=== PATIENT | female | born 1985 ===

== ENCOUNTER 2018-10-21 19:26 | Emergency (ER) | payer SELFPAY ==
[2018-10-21 19:33] VITALS: BMI 21.6
--- NOTE | 2018-10-21 19:36 | ED PDOC ---
Arrival/HPI - General Historian: Patient, EMS - History of Present Illness Narrative History of Present Illness (Text): 10/21/18 19:33 32 y/o female, psychiatric history including depression, nkda, biba for psychiatric evaluation. Pt. stated that she has been depressed becausae the boyfriend cheated on her, not been eating or drinking well, found out by family and concerning about her so she was send to the ER for evaluation. Pt. stated that she is sad about boyfriend cheating on her and chronically depressed but not any worsened, no auditory or visual hallucination, no homocidal or suicidal ideation, no other medical or psychological complaints. Past Medical History - Provider Review Nursing Documentation Reviewed: Yes - Past History Past History: No Previous - Infectious Disease Hx of Infectious Diseases: None - Tetanus Immunization Tetanus Immunization: Unknown - Past Medical History Past Medical History: No Previous - Cardiac Hx Cardiac Disorders: No Hx Hypertension: No - Pulmonary Hx Respiratory Disorders: No Hx Tuberculosis: No - Neurological HX Cerebrovascular Accident: No Hx Seizures: No - HEENT Hx HEENT Disorder: No - Renal Hx Renal Disorder: No - Endocrine/Metabolic Hx Endocrine Disorders: No - Hematological/Oncological Hx Blood Disorders: No Hx Cancer: No - Integumentary Hx Dermatological Disorder: No - Musculoskeletal/Rheumatological Hx Musculoskeletal Disorders: No Hx Falls: No - Gastrointestinal Hx Gastrointestinal Disorders: No - Genitourinary/Gynecological Hx Genitourinary Disorders: No Hx Sexually Transmitted Diseases: No - Psychiatric Hx Sexual Abuse: No Hx Substance Use: Yes (HEROIN) - Past Surgical History Past Surgical History: No Previous - Surgical History Hx Orthopedic Surgery: Yes (right leg surgery) Other/Comment: bone graft - Anesthesia Hx Anesthesia: Yes Hx Anesthesia Reactions: No Hx Malignant Hyperthermia: No - Suicidal Assessment Feels Threatened In Home Enviroment: No Family/Social History - Physician Review Nursing Documentation Reviewed: Yes Family/Social History: Unknown Family HX Smoking Status: Heavy Smoker > 10 Cigarettes Daily Hx Alcohol Use: No Hx Substance Use: Yes (HEROIN) Substance used: heroin and xanax Hx Substance Use Treatment: No Allergies/Home Meds Allergies/Adverse Reactions: Allergies No Known Allergies Allergy (Verified 10/21/18 19:40) Home Medications: Home Meds Medication Instructions Recorded Confirmed Gabapentin [Neurontin] 600 mg PO BID 10/28/16 01/10/17 Metoprolol Succinate XL [Toprol XL] 50 mg PO DAILY 10/28/16 01/10/17 Escitalopram [Lexapro] 20 mg PO DAILY 01/10/17 01/10/17 busPIRone [Buspar] 30 mg PO TID 01/10/17 01/10/17 Review of Systems - Review of Systems Constitutional: absent: Fatigue, Fevers Eyes: absent: Vision Changes ENT: absent: Hearing Changes Respiratory: absent: SOB, Cough Cardiovascular: absent: Chest Pain Gastrointestinal: absent: Abdominal Pain, Diarrhea, Nausea, Vomiting Skin: absent: Rash, Pruritis Neurological: absent: Headache, Dizziness Psychiatric: Depression. absent: Anxiety, Suicidal Ideation Physical Exam - Systems Exam Head: Present: Atraumatic, Normocephalic Pupils: Present: PERRL Extroacular Muscles: Present: EOMI Conjunctiva: Present: Normal Mouth: Present: Moist Mucous Membranes Neck: Present: Normal Range of Motion Respiratory/Chest: Present: Clear to Auscultation, Good Air Exchange. No: Respiratory Distress, Accessory Muscle Use Cardiovascular: Present: Regular Rate and Rhythm, Normal S1, S2. No: Murmurs Abdomen: No: Tenderness, Distention, Peritoneal Signs, Rebound, Guarding Back: Present: Normal Inspection Upper Extremity: Present: Normal Inspection, Normal ROM, NORMAL PULSES, Neurovascularly Intact. No: Cyanosis, Edema, Deformity Lower Extremity: Present: Normal Inspection, NORMAL PULSES, Normal ROM, Neurovascularly Intact. No: Edema, Deformity Neurological: Present: GCS=15, CN II-XII Intact, Speech Normal, Motor Func Grossly Intact, Gait Normal, Memory Normal Skin: Present: Warm, Dry, Normal Color. No: Rashes Psychiatric: Present: Alert, Oriented x 3, Normal Insight, Normal Concentration Medical Decision Making ED Course and Treatment: 10/21/18 19:37 -Labs -PES 10/21/18 20:15 -Pt. request to leave, stated that she doesn't know why she needs lab work or radiology studies, request to leave, PES is here and would allow the PES fo evaluation. -Pt. is medically clear and stable for psychiatric evaluation 10/21/18 20:39 -Pt. evaluated by the PES Sheryl, discussed with the psychiatrist Dr. Schulz, suggest to discharge home with no admission require. Pt. has no homocida l/suicidal ideation, no auditory or visual hallucination 10/21/18 20:53 -Pt. is anxious and didn't take her BP medication, clonidine and xanax ordered. 10/21/18 21:44 -Urine hcg is negative -Vitally improved. Pt. has no homocidal/suicidal ideation, no auditory or visual hallucination -Discharge home with education on follow up with the psychiatrist within 2 days, return to the ER for any new or worsening signs or symptoms. - PA / ASSISTANT BOOKKEEPER / Resident Statement MD/DO has reviewed & agrees with the documentation as recorded. Disposition/Present on Arrival - Present on Arrival Any Indicators Present on Arrival: No History of DVT/PE: No History of Uncontrolled Diabetes: No Urinary Catheter: No History of Decub. Ulcer: No History Surgical Site Infection Following: None - Disposition Have Diagnosis and Disposition been Completed?: Yes Diagnosis: Psychiatric care Disposition: HOME/ ROUTINE Disposition Time: 20:42 Patient Plan: Discharge Patient Problems: Current Active Problems Problem Status Onset Psychiatric care Acute Condition: IMPROVED Additional Instructions: -Discharge home with education on follow up with the psychiatrist within 2 days, return to the ER for any new or worsening signs or symptoms. Referrals: Ean Tenorio JD, MD [Primary Care Provider] - Follow up with primary Ventura Schulz MD [Staff Provider] - Follow up with primary Forms: WORK NOTE
[2018-10-21 20:09] VITALS: RESP 18; TEMP 98.9; O2SAT 100
[2018-10-21 21:42] VITALS: BP 157/94; PULSE 88
== END 2018-10-21 22:00 | disposition home or self-care (01) ==
LOC: ED 19:26
DX: Z00.8 Encounter for other general examination (principal); F32.9 Major depressive disorder, single episode, unspecified

== ENCOUNTER 2018-10-30 23:33 | Emergency (ER) | payer SELFPAY ==
--- NOTE | 2018-10-30 23:49 | ED PDOC ---
Arrival/HPI - General Time Seen by Provider: 10/30/18 23:34 Historian: Patient - History of Present Illness Narrative History of Present Illness (Text): 10/30/18 23:52 32 year old female, whose past medical history includes substance abuse, presents to the Emergency department by EMS for evaluation. Patient states her sister, who lives in [place], called the police when she wasn't answering her phone. Patient states her phone ran out of battery. Patient states sister told police that patient is depressed. Patient has been having issues with her boyfriend. Patient denies any suicidal and homicidal ideation. Patient informs being seen here for similar issues last week. Patient was seen by PES and cleared for discharge, with no indication for inpatient treatment. Patient denies any psychiatric or somatic complaints and states she would like to go home. Patient denies fevers, chills, headache, dizziness, hallucinations, chest pain, shortness of breath, abdominal pain, nausea, vomiting, diarrhea, or any other complaint. Time/Duration: Prior to Arrival Context: Home Past Medical History - Provider Review Nursing Documentation Reviewed: Yes - Past History Past History: No Previous - Infectious Disease Hx of Infectious Diseases: None - Tetanus Immunization Tetanus Immunization: Unknown - Past Medical History Past Medical History: No Previous - Cardiac Hx Cardiac Disorders: No Hx Hypertension: No - Pulmonary Hx Respiratory Disorders: No Hx Tuberculosis: No - Neurological HX Cerebrovascular Accident: No Hx Seizures: No - HEENT Hx HEENT Disorder: No - Renal Hx Renal Disorder: No - Endocrine/Metabolic Hx Endocrine Disorders: No - Hematological/Oncological Hx Blood Disorders: No Hx Cancer: No - Integumentary Hx Dermatological Disorder: No - Musculoskeletal/Rheumatological Hx Musculoskeletal Disorders: No Hx Falls: No - Gastrointestinal Hx Gastrointestinal Disorders: No - Genitourinary/Gynecological Hx Genitourinary Disorders: No Hx Sexually Transmitted Diseases: No - Psychiatric Hx Sexual Abuse: No Hx Substance Use: Yes (HEROIN) - Past Surgical History Past Surgical History: No Previous - Surgical History Hx Orthopedic Surgery: Yes (right leg surgery) Other/Comment: bone graft - Anesthesia Hx Anesthesia: Yes Hx Anesthesia Reactions: No Hx Malignant Hyperthermia: No - Suicidal Assessment Feels Threatened In Home Enviroment: No Family/Social History - Physician Review Nursing Documentation Reviewed: Yes Family/Social History: No Known Family HX Smoking Status: Heavy Smoker > 10 Cigarettes Daily Hx Alcohol Use: No Hx Substance Use: Yes (HEROIN) Substance used: heroin and xanax Hx Substance Use Treatment: No Allergies/Home Meds Allergies/Adverse Reactions: Allergies No Known Allergies Allergy (Verified 10/30/18 23:55) Home Medications: Home Meds Medication Instructions Recorded Confirmed Gabapentin [Neurontin] 600 mg PO BID 10/28/16 01/10/17 Metoprolol Succinate XL [Toprol XL] 50 mg PO DAILY 10/28/16 01/10/17 Escitalopram [Lexapro] 20 mg PO DAILY 01/10/17 01/10/17 busPIRone [Buspar] 30 mg PO TID 01/10/17 01/10/17 Review of Systems - Physician Review All systems were reviewed & negative as marked: Yes - Review of Systems Constitutional: absent: Fevers Psychiatric: absent: Suicidal Ideation Physical Exam - Physical Exam Narrative Physical Exam (Text): 10/30/18 23:59 Constitutional: No acute distress. Head: Normocephalic. Atraumatic. Eyes: PERRL. ENT: Moist mucous membranes. Neck: Supple. Cardiovascular: Regular rate. Chest: No tenderness. Respiratory: Clear to auscultation bilaterally. GI: Soft. Nontender. Nondistended. Back: No CVA tenderness. Musculoskeletal: No tenderness or swelling of extremities. Skin: No rash. Neurologic: Alert, no focal deficit. Medical Decision Making ED Course and Treatment: No indication for inpatient psychiatric admission. Patient informed she may return to ED at any time if she ever has any thoughts to hurt self or others. Discharged home. - Scribe Statement The provider has reviewed the documentation as recorded by the Gus Hutchinson Provider Scribe Attestation: All medical record entries made by the Gus were at my direction and personally dictated by me. I have reviewed the chart and agree that the record accurately reflects my personal performance of the history, physical exam, medical decision making, and the department course for this patient. I have also personally directed, reviewed, and agree with the discharge instructions and disposition. Disposition/Present on Arrival - Present on Arrival Any Indicators Present on Arrival: No History of DVT/PE: No History of Uncontrolled Diabetes: No Urinary Catheter: No History Surgical Site Infection Following: None - Disposition Have Diagnosis and Disposition been Completed?: Yes Diagnosis: Psychiatric care Disposition: HOME/ ROUTINE Disposition Time: 23:51 Patient Plan: Discharge Condition: STABLE Forms: [employer] (Nauruan)
[2018-10-30 23:52] VITALS: BMI 21.2
[2018-10-31 00:03] VITALS: BP 141/98; PULSE 92; RESP 18; TEMP 98; O2SAT 98
== END 2018-10-31 00:28 | disposition home or self-care (01) ==
LOC: ED 23:33
DX: Z00.8 Encounter for other general examination (principal); F17.210 Nicotine dependence, cigarettes, uncomplicated

== ENCOUNTER 2019-01-31 01:12 | Emergency (ER) | payer SELFPAY ==
[2019-01-31 01:13] VITALS: BMI 21.2
[2019-01-31 01:38] VITALS: TEMP 98; O2SAT 100
--- NOTE | 2019-01-31 02:07 | ED PDOC ---
Arrival/HPI - General Chief Complaint: Psychiatric Evaluation Time Seen by Provider: 01/31/19 01:30 Historian: Patient - History of Present Illness Narrative History of Present Illness (Text): 01/31/19 02:07 Bhumi Whelan is a 33 year old female, whose past medical history includes substance abuse, depression, and anxiety, who presents to the Emergency department brought in by EMS for psychiatric evaluation. Patient states she and her boyfriend got in to an argument this evening over the phone and patient's boyfriend call the police alleging patient was going to attempt to kill herself. Patient denies any suicidal ideation or homicidal ideation and notes her boyfriend has done this in the past during arguments. Patient denies any fever, chills, chest pain, shortness of breath, nausea, vomiting, diarrhea, urinary symptoms, back pain, neck pain, headache, dizziness, or any other complaints. Symptom Onset: Gradual Symptom Course: Unchanged Activities at Onset: Light Context: Home Past Medical History - Provider Review Nursing Documentation Reviewed: Yes - Past History Past History: No Previous - Infectious Disease Hx of Infectious Diseases: None - Tetanus Immunization Tetanus Immunization: Unknown - Past Medical History Past Medical History: No Previous - Cardiac Hx Cardiac Disorders: No Hx Hypertension: No - Pulmonary Hx Respiratory Disorders: No Hx Tuberculosis: No - Neurological HX Cerebrovascular Accident: No Hx Seizures: No - HEENT Hx HEENT Disorder: No - Renal Hx Renal Disorder: No - Endocrine/Metabolic Hx Endocrine Disorders: No - Hematological/Oncological Hx Blood Disorders: No Hx Cancer: No - Integumentary Hx Dermatological Disorder: No - Musculoskeletal/Rheumatological Hx Musculoskeletal Disorders: No Hx Falls: No - Gastrointestinal Hx Gastrointestinal Disorders: No - Genitourinary/Gynecological Hx Genitourinary Disorders: No Hx Sexually Transmitted Diseases: No - Psychiatric Hx Sexual Abuse: No Hx Substance Use: Yes (Last Use 08/2018.) - Past Surgical History Past Surgical History: No Previous - Surgical History Hx Orthopedic Surgery: Yes (right leg surgery) Other/Comment: bone graft - Anesthesia Hx Anesthesia: Yes Hx Anesthesia Reactions: No Hx Malignant Hyperthermia: No - Suicidal Assessment Feels Threatened In Home Enviroment: No Family/Social History - Physician Review Nursing Documentation Reviewed: Yes Family/Social History: Unknown Family HX Smoking Status: Heavy Smoker > 10 Cigarettes Daily Hx Alcohol Use: No Hx Substance Use: Yes (Last Use 08/2018.) Substance used: heroin and xanax Hx Substance Use Treatment: No Allergies/Home Meds Allergies/Adverse Reactions: Allergies No Known Allergies Allergy (Verified 10/30/18 23:55) Home Medications: Home Meds Medication Instructions Recorded Confirmed Gabapentin [Neurontin] 600 mg PO BID 10/28/16 01/10/17 Metoprolol Succinate XL [Toprol XL] 50 mg PO DAILY 10/28/16 01/10/17 Escitalopram [Lexapro] 20 mg PO DAILY 01/10/17 01/10/17 busPIRone [Buspar] 30 mg PO TID 01/10/17 01/10/17 Review of Systems - Physician Review All systems were reviewed & negative as marked: Yes - Review of Systems Constitutional: Normal. absent: Fevers Eyes: Normal ENT: Normal Respiratory: Normal. absent: SOB, Cough Cardiovascular: Normal. absent: Chest Pain Gastrointestinal: Normal. absent: Abdominal Pain, Diarrhea, Nausea, Vomiting Genitourinary Female: Normal. absent: Dysuria, Frequency, Hematuria, Urine Output Changes Musculoskeletal: Normal. absent: Back Pain, Neck Pain Skin: Normal. absent: Rash Neurological: Normal. absent: Headache, Dizziness Endocrine: Normal Hemo/Lymphatic: Normal Psychiatric: Normal Physical Exam Vital Signs Reviewed: Yes Vital Signs Temp Pulse Resp BP Pulse Ox 01/31/19 01:32 98 F 100 H 18 135/91 H 100 Temperature: Afebrile Blood Pressure: Normal Pulse: Regular Respiratory Rate: Normal Appearance: Positive for: Well-Appearing, Non-Toxic, Comfortable Pain Distress: None Mental Status: Positive for: Alert and Oriented X 3 - Systems Exam Head: Present: Atraumatic, Normocephalic Pupils: Present: PERRL Extroacular Muscles: Present: EOMI Conjunctiva: Present: Normal Mouth: Present: Moist Mucous Membranes Neck: Present: Normal Range of Motion Respiratory/Chest: Present: Clear to Auscultation, Good Air Exchange. No: Respiratory Distress, Accessory Muscle Use Cardiovascular: Present: Regular Rate and Rhythm, Normal S1, S2. No: Murmurs Abdomen: No: Tenderness, Distention, Peritoneal Signs Back: Present: Normal Inspection Upper Extremity: Present: Normal Inspection. No: Cyanosis, Edema Lower Extremity: Present: Normal Inspection. No: Edema Neurological: Present: GCS=15, CN II-XII Intact, Speech Normal Skin: Present: Warm, Dry, Normal Color. No: Rashes Psychiatric: Present: Alert, Oriented x 3, Normal Insight, Normal Concentration Medical Decision Making ED Course and Treatment: 01/31/19 02:07 Impression: 33 year old female brought in for psychiatric evaluation Plan: -- PES evaluation -- Reassess and disposition Prior Visits: Notes and results from previous visits were reviewed. Progress Notes: 01/31/19 03:50 Pt seen and evaluated by PES poppy Saucedo, who discussed case with psychiatrist bonsai culturist. Pt psychiatrically cleared for discharge home with outpatient follow- up with [facility]. - Scribe Statement The provider has reviewed the documentation as recorded by the Gus Edouard Provider Scribe Attestation: All medical record entries made by the Scribe were at my direction and personally dictated by me. I have reviewed the chart and agree that the record accurately reflects my personal performance of the history, physical exam, medical decision making, and the department course for this patient. I have also personally directed, reviewed, and agree with the discharge instructions and disposition. Disposition/Present on Arrival - Present on Arrival Any Indicators Present on Arrival: No History of DVT/PE: No History of Uncontrolled Diabetes: No Urinary Catheter: No History of Decub. Ulcer: No History Surgical Site Infection Following: None - Disposition Have Diagnosis and Disposition been Completed?: Yes Diagnosis: Relationship problem between partners, History of depression Disposition: HOME/ ROUTINE Disposition Time: 03:50 Condition: STABLE Additional Instructions: Follow up with your psychiatrist this week Forms: PHRQL (Micronesian)
[2019-01-31 04:55] VITALS: BP 132/92; PULSE 88; RESP 16
== END 2019-01-31 03:45 | disposition home or self-care (01) ==
LOC: ED 01:12
DX: Z63.0 Problems in relationship with spouse or partner (principal); F32.9 Major depressive disorder, single episode, unspecified

== ENCOUNTER 2019-03-11 09:37 | Emergency (ER) | payer MEDICAID, OTHER ==
[2019-03-11 09:39] VITALS: BMI 21.2
--- NOTE | 2019-03-11 10:04 | ED PDOC ---
Arrival/HPI - General Chief Complaint: Psychiatric Evaluation Time Seen by Provider: 03/11/19 09:41 Historian: Patient - History of Present Illness Narrative History of Present Illness (Text): 03/11/19 09:58 33 F with pmh of substance abuse, depression, and anxiety presents via [place] [employer] for psychiatric evaluation. Patient reports she won the lottery and states that someone wants to take her lottery ticket. She feels like the police want to taker he lottery tickets Patient denies any S.I., H.I., fevers or chills. She denies any fall or trauma. Time/Duration: Prior to Arrival Symptom Onset: Sudden Symptom Course: Unchanged Activities at Onset: Light Context: Home Past Medical History - Past History Past History: No Previous - Infectious Disease Hx of Infectious Diseases: None - Tetanus Immunization Tetanus Immunization: Unknown - Past Medical History Past Medical History: No Previous - Cardiac Hx Cardiac Disorders: No Hx Hypertension: No - Pulmonary Hx Respiratory Disorders: No Hx Tuberculosis: No - Neurological HX Cerebrovascular Accident: No Hx Seizures: No - HEENT Hx HEENT Disorder: No - Renal Hx Renal Disorder: No - Endocrine/Metabolic Hx Endocrine Disorders: No - Hematological/Oncological Hx Blood Disorders: No Hx Cancer: No - Integumentary Hx Dermatological Disorder: No - Musculoskeletal/Rheumatological Hx Musculoskeletal Disorders: No Hx Falls: No - Gastrointestinal Hx Gastrointestinal Disorders: No - Genitourinary/Gynecological Hx Genitourinary Disorders: No Hx Sexually Transmitted Diseases: No - Psychiatric Hx Sexual Abuse: No Hx Substance Use: Yes (Last Use 08/2018.) - Past Surgical History Past Surgical History: No Previous - Surgical History Hx Orthopedic Surgery: Yes (right leg surgery) Other/Comment: bone graft - Anesthesia Hx Anesthesia: Yes Hx Anesthesia Reactions: No Hx Malignant Hyperthermia: No - Suicidal Assessment Feels Threatened In Home Enviroment: No Family/Social History Family/Social History: Unknown Family HX Smoking Status: Heavy Smoker > 10 Cigarettes Daily Hx Alcohol Use: No Hx Substance Use: Yes (Last Use 08/2018.) Substance used: heroin and xanax Hx Substance Use Treatment: No Allergies/Home Meds Allergies/Adverse Reactions: Allergies No Known Allergies Allergy (Verified 10/30/18 23:55) Home Medications: Home Meds Medication Instructions Recorded Confirmed Gabapentin [Neurontin] 600 mg PO BID 10/28/16 01/10/17 Metoprolol Succinate XL [Toprol XL] 50 mg PO DAILY 10/28/16 01/10/17 Escitalopram [Lexapro] 20 mg PO DAILY 01/10/17 01/10/17 busPIRone [Buspar] 30 mg PO TID 01/10/17 01/10/17 Review of Systems - Physician Review All systems were reviewed & negative as marked: Yes - Review of Systems Constitutional: absent: Fatigue, Fevers Eyes: absent: Vision Changes ENT: absent: Hearing Changes Respiratory: absent: SOB, Cough Cardiovascular: absent: Chest Pain, Palpitations, Edema, Calf Pain, HAGAN Gastrointestinal: absent: Abdominal Pain, Appetite Changes Genitourinary Female: absent: Dysuria, Frequency, Hematuria Musculoskeletal: absent: Arthralgias, Back Pain Skin: absent: Rash Neurological: absent: Headache, Dizziness Hemo/Lymphatic: absent: Adenopathy Psychiatric: absent: Anxiety, Suicidal Ideation Physical Exam Vital Signs Reviewed: Yes Temperature: Afebrile Blood Pressure: Normal Pulse: Tachycardic Respiratory Rate: Normal Appearance: Positive for: Well-Appearing Pain Distress: Mild Mental Status: Positive for: Alert and Oriented X 3 - Systems Exam Head: Present: Atraumatic, Normocephalic Pupils: Present: PERRL Extroacular Muscles: Present: EOMI Conjunctiva: Present: Normal Ears: Present: Normal, NORMAL TM, Normal Canal. No: Erythema, TM Bulging Mouth: Present: Moist Mucous Membranes Pharnyx: Present: Normal. No: ERYTHEMA, EXUDATE, TONSILS ENLARGED Nose (Internal): Present: Normal Inspection Neck: Present: Normal Range of Motion. No: Meningeal Signs, MIDLINE TENDERNESS Respiratory/Chest: Present: Clear to Auscultation, Good Air Exchange. No: Respiratory Distress, Accessory Muscle Use Cardiovascular: Present: Regular Rate and Rhythm, Normal S1, S2. No: Murmurs Abdomen: No: Tenderness, Distention, Peritoneal Signs Back: Present: Normal Inspection. No: CVA Tenderness, Midline Tenderness Upper Extremity: Present: Normal Inspection. No: Cyanosis, Edema Lower Extremity: Present: Normal Inspection. No: Edema Neurological: Present: GCS=15, CN II-XII Intact, Motor Func Grossly Intact, Normal Sensory Function, Normal Cerebellar Funct Skin: Present: Warm, Dry, Normal Color. No: Rashes Psychiatric: Present: Alert, Oriented x 3, Agitated, Hallucinations, Other (pressure speech). No: Suicidal Ideation, Homicidal Ideation Medical Decision Making ED Course and Treatment: 03/11/19 10:04 Impression: 33 F with presents via [place] [employer] for psychiatric evaluation. Pt with pressured speech, no SI or HI. Notes she has not been taking her home psych meds. No fall or trauma. No meningeal signs or signs of trauma on exam. Plan: -- Labs -- [facility] Crisis Evaluation -- Reassess and disposition Prior Visits: Notes and results from previous visits were reviewed. Progress Notes: 03/11/19 11:14 EKG shows Sinus Tachycardia at 102 BPM, No STEMI. Interpreted by me. 03/11/19 11:31 Per [facility]- they believe pt is on drugs: they will await labs and seek re-eval. pending [facility] re-eval 03/11/19 15:28 Urine w/ squams, 2-5 whites, abx ordered, labs otherwise largely unremarkable No CVAT medically clear Pending [facility] dispo 03/11/19 16:15 +Cocaine +PCP 03/11/19 18:16 Speech normal: pt denies any SI or HI or depression Seen by [facility], clear for d/c home w appt w/ Dr. Schulz. Pt agreeable to plan. No C VAT. Pt denies any vaginal d/c or rash. I endorsed to patient need to d/c drugs as well as to see her psychiatrist. I also endorsed the lab findings of UTI and need for abx and followup. Pt in NAD, agreeable to plan. - Scribe Statement The provider has reviewed the documentation as recorded by the Gus Lerma All medical record entries made by the Scribcirilo were at my direction and personally dictated by me. I have reviewed the chart and agree that the record accurately reflects my personal performance of the history, physical exam, medical decision making, and the department course for this patient. I have also personally directed, reviewed, and agree with the discharge instructions and disposition. Disposition/Present on Arrival - Present on Arrival Any Indicators Present on Arrival: No History of DVT/PE: No History of Uncontrolled Diabetes: No Urinary Catheter: No History of Decub. Ulcer: No History Surgical Site Infection Following: None - Disposition Have Diagnosis and Disposition been Completed?: Yes Diagnosis: UTI (urinary tract infection), Agitation, PCP abuse, Cocaine abuse Disposition Time: 16:01 Patient Problems: Current Active Problems Problem Status Onset Agitation Acute Cocaine abuse Acute PCP abuse Acute UTI (urinary tract infection) Acute Condition: STABLE Discharge Instructions (ExitCare): Urinary Tract Infections in Adults, Cocaine Use Disorder, Drug Abuse and Drug Addiction (DC) Additional Instructions: STOP TAKING DRUGS. FOLLOW UP WITH Dr. SHIRLENE HUYNH. RETURN IF ANY OTHER ISSUES RISHABH AL, thank you for letting us take care of you today. The emergency medical care you received today was directed at your acute symptoms. If you were prescribed any medication, please fill it and take as directed. It may take several days for your symptoms to resolve. Return to the Emergency Department if your symptoms worsen, do not improve, or if you have any other problems. Please contact your doctor or call one of the physicians/clinics you have been referred to that are listed on the Patient Visit Information form that is included in your discharge packet. Bring any paperwork you were given at discharge with you along with any medications you are taking to your follow up visit. Our treatment cannot replace ongoing medical care by a primary care provider outside of the emergency department. Thank you for allowing the [facility] team to be part of your care today. If you had an X-Ray or CT scan: A Radiologist will review the ED reading if any change in treatment is needed we will contact you. If you had a blood, urine, or wound culture: It will take several days for the results, if any change in treatment is needed we will contact you. If you had an STI test: It will take 48 hours for the results. Please call after 1 week if you have not heard back. Prescriptions: Nitrofurantoin Macrocrystal [Nitrofurantoin] 100 mg PO BID 5 Days #9 capsule Referrals: [facility]ILY PROVIDER,GRANT [Primary Care Provider] - Follow up with primary Carla Moreland MD [Medical Doctor] - Follow up with primary Ventura Schulz MD [Staff Provider] - Follow up with primary [facility] [Outside] - Follow up with primary [facility] [Outside] - Follow up with primary [facility] [Outside] - Follow up with primary [facility] [Outside] - Follow up with primary Forms: [facility] (Turkmen)
[2019-03-11 11:22] VITALS: TEMP 98; O2SAT 100
[2019-03-11 11:29] LABS: BASO # 0.02 K/mm3 (0.0-2.0); BASO % 0.2 % (0.0-3.0); EOS # 0.1 (0.0-0.7); EOS % 0.8 % (1.5-5.0); HEMOGLOBIN 11.4 g/dL (12.0-16.0); LYMPH # 2.9 (1.2-3.4); LYMPH % 33.4 % (22.0-35.0); MEAN CELL VOLUME 82.7 fl (80.0-105.0); MEAN CORPUSCULAR HEMOGLOBIN 26.7 pg (25.0-35.0); MEAN CORPUSCULAR HGB CONC 32.3 g/dl (31.0-37.0); MEAN PLATELET VOLUME 10.8 fl (7.0-11.0); MONO # 0.5 (0.1-0.6); MONO % 5.9 % (1.0-6.0); RBC 4.27 10^6/uL (3.5-6.1); RED CELL DISTRIBUTION WIDTH 13.9 % (11.5-14.5); WHITE BLOOD COUNT 8.6 10^3/uL (4.5-11.0)
[2019-03-11] MEDS ORDERED: Sodium Chloride 0.9% 1,000 ML IV STA (11:30)
--- NOTE | 2019-03-11 11:32 | CARD ---
APPROVED REPORT Date of service: 03/11/2019 EKG Measurement Heart [id number] <Conclusion> Sinus tachycardia Voltage citeria for left ventricular hypertrophy, may be normal variant for age Borderline ECG
[2019-03-11 11:34] LABS: ALB/GLOB RATIO 1.2 (1.1-1.8); ALBUMIN 4.2 g/dL (3.0-4.8); ALT/SGPT 52 U/L (7-56); AST/SGOT 50 U/L (14-36); BLOOD UREA NITROGEN 14 mg/dL (7-21); CALCIUM 9.3 mg/dL (8.4-10.5); GFR NON-AFRICAN AMERICAN > 60
[2019-03-11 11:35] LABS: ACETAMINOPHEN < 10.0 ug/ml (10.0-20.0); SALICYLATE < 1 mg/dL (2.0-20.0)
[2019-03-11 15:21] LABS: URINE APPEARANCE CLEAR (CLEAR); URINE BILIRUBIN SMALL (NEGATIVE); URINE BLOOD NEGATIVE (NEGATIVE); URINE COLOR YELLOW (YELLOW); URINE GLUCOSE (UA) NEGATIVE (NEGATIVE); URINE LEUKOCYTE ESTERASE NEGATIVE Leu/uL (NEGATIVE); URINE PROTEIN 30 mg/dL (<30 mg/dL); URINE UROBILINOGEN 0.2 E.U./dL (<1 E.U./dL)
[2019-03-11 15:25] LABS: URINE AMORPHOUS SEDIMENT FEW /hpf; URINE BACTERIA MANY /hpf; URINE RBC 0 - 2 /hpf (0-2)
[2019-03-11 15:56] LABS: BENZODIAZEPINES, UR NEGATIVE (NEGATIVE)
[2019-03-11 16:14] LABS: BARBITURATES, UR NEGATIVE (NEGATIVE); OPIATES, UR NEGATIVE (NEGATIVE); PHENCYCLIDINE, UR POSITIVE (NEGATIVE)
[2019-03-11 17:00] VITALS: RESP 18
[2019-03-11 19:48] VITALS: BP 129/88; PULSE 95
== END 2019-03-11 19:49 | disposition home or self-care (01) ==
LOC: ED 09:37
DX: N39.0 Urinary tract infection, site not specified (principal); R45.1 Restlessness and agitation; F14.10 Cocaine abuse, uncomplicated; F16.10 Hallucinogen abuse, uncomplicated; F17.210 Nicotine dependence, cigarettes, uncomplicated
CPT/HCPCS: 80053; 81001; 81025; 83735; 85025; 90791; 93005; 96372; 96374; 99285; G0480; J1630; J2060